=== PATIENT | female | born 1945 | race Two or more races ===

== ENCOUNTER → 2016-10-24 | Outpatient (CLI) | payer MEDICARE, MEDICAID ==
[~2016-10-24] MED LIST: APRESOLINE25 MG PO; CORDARONE,PACE200 MG PO; COREG25 MG PO; COZAAR50 MG PO; FISH OIL1000 MG PO; LANTUS (IN100 UNIT/M SUB-Q; LASIX40 MG PO; LEVEMIR FL100 UNIT/1 SUB-Q; LEVOTHROID (SY88 MCG PO; LIVALO2 MG PO; MIACALCIN3.7 ML/BOT NOSE; NITROSTAT0.4 MG SL; NOVOLOG FL100 UNIT/1 SUB-Q; NOVOLOG100 UNIT/M SUB-Q; NYSTATIN1 EAC1 TOP; PRADAXA150 MG PO
== END ==
LOC: GNUT 07:47
DX: E11.65 Type 2 diabetes mellitus with hyperglycemia (principal); Z71.3 Dietary counseling and surveillance